=== PATIENT | male | born 1980 | race Caucasian/White ===

== ENCOUNTER 2017-07-16 07:01 | Day surgery (SDC) | payer OTHER ==
[~2017-07-16] VITALS: Ht 182.9 cm; Wt 90.7 kg
--- NOTE | 2017-07-16 11:17 | NUR ---
07/16/17 1117 Mireille Roberts TO PACU, ORAL AIRWAY IN PLACE. RESP EVEN UNLABORED. MINE MINA AT BEDSIDE.
[2017-07-16] MEDS ORDERED: ULTRAM50 MG PO (12:23)
[2017-07-16] MEDS ORDERED: NORCO 10-325 T1 EACH PO (12:37)
--- NOTE | 2017-07-16 12:39 | NUR ---
PT UP TO BR W/EOCI OFFICER STANDBY. PT VOIDS AND IS BACK IN BED. MORE CRACKERS ARE GIVEN.
--- NOTE | 2017-07-16 13:10 | NUR ---
VERBAL DC INSTRUCTIONS GIVEN AND PATIENT VERBALIZES UNDERSTANDING.
--- NOTE | 2017-07-16 13:34 | NUR ---
CALL REPORT GIVEN TO [facility] NURSE AND HER QUESTIONS ARE ANSWERED.
--- NOTE | 2017-07-21 07:19 | OR ---
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 PROCEDURE: Reconstruction with open reduction, internal fixation and allograft of nonunion ulnar fracture with ulnar nerve release. ANESTHESIA: General. SPECIMENS AND COMPLICATIONS: There were no specimens or complications. TOURNIQUET TIME: 90 minutes. WHAT WAS DONE: The patient was taken to the operating room. After general anesthesia was induced and airway secured, the patient was repositioned prone on the operating room table. All the bony prominences were padded and the patient was prepped and draped in the routine sterile fashion. The arm was exsanguinated with an Esmarch bandage. Pneumatic tourniquet was inflated to 300 mmHg pressure. A straight posterior incision was made over the posterior aspect of the elbow beginning about three fingerbreadths proximal to the tip of the retracted olecranon and extending distally about four fingerbreadths distally to the palpable fracture site on the distal aspect of the ulna. Skin was divided sharply. Subcutaneous tissue was bluntly spread. We then dissected medially, identified the ulnar nerve gently freed it up, I was quite bound down in the scar tissue and then protected with a vascular loop. We then exposed the fracture site both on the olecranon as well as on the more proximal portion of the ulna. There was abundant fibrous scar tissue that had to be excised sharply, we then use curettes and rongeurs, and small osteotomes to recuperate open bony surfaces on the opposing fracture fragments. 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 After resecting the pseudarthrosis and preparing the bone as mentioned above, we provisionally Electronically Signed By: KELLEN DEAN MD 07/21/17 0719 PATIENT NAME: DARÍO LOWERY OPERATIVE REPORT DATE OF : 82 REPORT #: [id number] PHYSICIAN: KELLEN DEAN MD PCP: NO PRIMARY CARE PHYSICIAN REPORT IS CONFIDENTIAL AND NOT TO BE RELEASED WITHOUT AUTHORIZATION [facility] [address], [place] [address] Signed reduced the nonunion, secured it with couple of K-wires. Once we were happy with the alignment and position, we placed the Synthes locking olecranon plate and again secured it with several K-wires. Once we were happy with the alignment and position, we placed the screws. There was some gapping on a portion of the fracture site. We therefore, mixed up and soften 10 mL of bone chips. These were then packed into the fracture site and tamped down with a tamp. The wound was gently irrigated. The ulnar nerve was inspected and seem to be completely free. The wound was irrigated one more time. Routine wound closure was accomplished. He was then placed in a splint and bulky dressing, awakened, and was taken to the recovery room where he arrived in stable condition. Counts were correct and antibiotic protocols were followed. Kellen Dean MD WFB/MODL /[id number] Copies: ~ Electronically Signed By: KELLEN DEAN MD 07/21/17 0719 PATIENT NAME: DARÍO LOWERY OPERATIVE REPORT DATE OF : 82 REPORT #: [id number] PHYSICIAN: KELLEN DEAN MD PCP: NO PRIMARY CARE PHYSICIAN REPORT IS CONFIDENTIAL AND NOT TO BE RELEASED WITHOUT AUTHORIZATION
== END 2017-07-16 18:00 | disposition home or self-care (01) ==
LOC: DS 07:01 → OPS 07:01 → DS 07:02 → OPS 08:45
PROVIDERS: Orthopaedic Surgery
PROC: 01N40ZZ Release Ulnar Nerve, Open Approach (ICD-10-PCS; 2017-07-16)
PROC: 0PSL04Z Reposition Left Ulna with Internal Fixation Device, Open Approach (ICD-10-PCS; principal; 2017-07-16 08:45)
PROC: 0PUL07Z Supplement Left Ulna with Autologous Tissue Substitute, Open Approach (ICD-10-PCS; 2017-07-16 08:45)
DX: S52.022K Displaced fracture of olecranon process without intraarticular extension of left ulna, subsequent encounter for closed fracture with nonunion (principal); G56.22 Lesion of ulnar nerve, left upper limb; Z87.891 Personal history of nicotine dependence
CPT/HCPCS: 01740; 64415; 73070; 73080; 76942; C1713; J0690; J1100; J1885; J2250; J2270; J2405; J2704; J2765; J3010; J7120

== ENCOUNTER 2020-09-04 10:51 | Day surgery (SDC) | payer OTHER ==
[~2020-09-04] VITALS: Ht 182.9 cm; Wt 99.5 kg
[~2020-09-04 10:51] MED LIST: NORCO 10-325 T1 EACH PO; ULTRAM50 MG PO
--- NOTE | 2020-09-04 13:38 | NUR ---
09/04/20 1338 Yeimi Lang 1333-PATIENT ARRIVED TO PACU ON RA RR EVEN. PATIENT DROWSY EYES OPEN DENIES PAIN OR NAUSEA. ABDOMEN SOFT. IVF INFUSING. ENCOURAGED TO PASS GAS. PATIENT LAYING LEFT LATERAL AND DOZES BACK TO SLEEP.
--- NOTE | 2020-09-05 11:01 | OR ---
[facility] [address] [place], [place] [address] Signed DATE OF OPERATION: 09/04/2020 SURGEON: Darío Benton MD PREOPERATIVE DIAGNOSIS: Episodic left lower abdominal pain and diarrhea. POSTOPERATIVE DIAGNOSIS: Small polyp of left colon (non-causative). PROCEDURE: Total colonoscopy to cecum with cold morcellation, excision of left colon polyp, as well as rectal biopsy. ANESTHESIA: Intravenous sedation; fentanyl 100 mcg and Versed 8 mg. INDICATION: This 40-year-old white man is a prisoner at [facility] and a patient of ANI Seals. He has had complaints of diarrhea episodically, some blood per rectum and left lower abdominal pain. He is admitted at this time to better characterize the problem, understand the risks of bleeding, infection, and perforation. Notably, he did suffer COVID infection a number of months ago. He has no family history of colon cancer that he is aware of nor family history of inflammatory bowel disease. The risks of bleeding, infection, and perforation related to colonoscopy were reviewed with him. He understands and wished to proceed. FINDINGS: The prep was good. Complete colonoscopy was undertaken to the cecum without question. He had no evidence of colitis per se. He had no diverticular changes that were obvious. He did have a small pedunculated polyp at 40 cm, which was excised. The rectum appeared normal. The biopsies were obtained to assess for occult colitis. DESCRIPTION OF PROCEDURE: The patient was brought to endoscopy suite and placed in lateral decubitus position, given intravenous sedation to the point of slurred speech and nystagmus. Full cardiopulmonary monitoring was maintained. Digital rectal examination was normal including normal prostate. An Olympus video colonoscope was passed in the rectum and manipulated throughout the colon. The scope was ultimately advanced to the cecum. The ileocecal valve and appendiceal orifice were normal. The scope was withdrawn from that Electronically Signed By: DARÍO BENTON MD 07/14/21 1101 PATIENT NAME: DARÍO LOWERY OPERATIVE REPORT DATE OF : 82 REPORT #: [id number] PHYSICIAN: DARÍO BENTON MD PCP: TAI ORR MD REPORT IS CONFIDENTIAL AND NOT TO BE RELEASED WITHOUT AUTHORIZATION [facility] [address] [place], [place] [address] Signed point and examination throughout showed no sign of abnormality until approximately 40 cm from the anal verge, where a small pedunculated polyp was noted. This was excised with cold morcellation technique without problem. Further withdrawal of scope showed no clear evidence of diverticular changes, though there were some deep sulci of the colonic folds in this area. The rectum showed no evidence of obvious colitis. Biopsies were obtained nevertheless to assess for occult colitis. Retroflexed view was normal. The scope was removed and the patient was taken to the recovery room in good condition. CONCLUDING DIAGNOSES: 1. Small asymptomatic polyp at 40 cm (excised). 2. No evidence of colitis or diverticular change. PLAN: No specific change at this time. A high-fiber diet would be recommended generally. We will see the patient back in next nursing home clinic at which point, we will review his symptoms and his pathology reports. MD DEANNA Riddle/SANTO /[id number] cc: ANI Awad Copies: CRICKTE WILDE ~ Electronically Signed By: DARÍO BENTON MD 09/05/20 1101 PATIENT NAME: DARÍO LOWERY OPERATIVE REPORT DATE OF : 82 REPORT #: [id number] PHYSICIAN: DARÍO BENTON MD PCP: TAI ORR MD REPORT IS CONFIDENTIAL AND NOT TO BE RELEASED WITHOUT AUTHORIZATION
--- NOTE | 2020-09-06 15:33 | PATH ---
[facility] [address] [place], [place] [address] Signed SPECIMEN(S): A COLON POLYP SPECIMEN(S): B RECTUM SPECIMEN SOURCE: A. COLON POLYP B. RECTUM CLINICAL HISTORY: Colonoscopy. History of occult blood in stools, c/o left abdominal pain and chronic diarrhea. MICROSCOPIC DESCRIPTION: Histologic sections of all submitted blocks are examined by light microscopy. These findings, together with the gross examination, support the pathologic diagnosis. FINAL PATHOLOGIC DIAGNOSIS: A. Colon, polyp at 40 cm, polypectomy: - Inflammatory type polyp. - Negative for dysplasia or malignancy. B. Rectum, biopsy: - Rectal mucosa with no histopathologic abnormality. - Negative for active or chronic proctitis. - Negative for dysplasia or malignancy. NAL:cml:c2NR GROSS DESCRIPTION: Two specimens are received in two containers, labeled "RICK." A. The specimen, labeled "RICK, colon polyp at 40 cm," is received in formalin and consists of one soler soft tissue fragment that measures 0.3 cm in greatest dimension. The specimen is entirely submitted in cassette (A1). B. The specimen, labeled "RICK, rectum biopsy," is received in formalin and consists of two soler soft tissue fragments that measure 0.2 cm in greatest dimension. The specimen is entirely submitted in cassette (B1). JS (under the direct supervision of a pathologist) The Gross Description was prepared using a voice recognition system. The report was reviewed for accuracy; however, sound-alike word errors, addition and/or deletions may occur. If there is any question about this report, please contact Client Services. PATIENT NAME: DARÍO LOWERY PATHOLOGY DATE OF : 82 REPORT #: [id number] PHYSICIAN: ANTONINO COWART PCP: TAI ORR MD REPORT IS CONFIDENTIAL AND NOT TO BE RELEASED WITHOUT AUTHORIZATION [facility] [address] [place], [place] [address] Signed PERFORMING LABORATORY: The technical component was performed by [employer] [place] [address] (Research And Development Tester: Manjula Musa MD; CLIA# [id number]). Professional interpretation was performed by [employer] [facility], [address] [address] (CLIA# [id number]). Diagnostician: Shirley García MD Pathologist Electronically Signed 09/06/2020 Copies: ~ PATIENT NAME: DARÍO LOWERY PATHOLOGY DATE OF : 82 REPORT #: [id number] PHYSICIAN: ANTONINO COWART PCP: TAI ORR MD REPORT IS CONFIDENTIAL AND NOT TO BE RELEASED WITHOUT AUTHORIZATION
== END 2020-09-04 14:25 | disposition home or self-care (01) ==
LOC: OPS 10:51 → DS 10:55 → OPS 13:15 → DS 14:15 → OPS 14:15
PROVIDERS: ATTEND Surgery
PROC: 0DBG8ZZ Excision of Left Large Intestine, Via Natural or Artificial Opening Endoscopic (ICD-10-PCS; principal; 2020-09-04 13:15)
DX: R10.32 Left lower quadrant pain (principal); K52.9 Noninfective gastroenteritis and colitis, unspecified; R19.5 Other fecal abnormalities; K51.40 Inflammatory polyps of colon without complications; Z86.16 Personal history of COVID-19; Z20.822 Contact with and (suspected) exposure to COVID-19
CPT/HCPCS: 99153; G0500; J2250; J7121; U0003